=== PATIENT | female | born 1975 | race Caucasian/White ===

== ENCOUNTER → 2021-08-05 | Outpatient (CLI) | payer OTHER ==
[~2021-08-05] VITALS: Ht 167.6 cm; Wt 65.8 kg
[~2021-08-05] MED LIST: ACET325T9 PO; BACL10TA PO; CALC500T54 PO; CETI10TA74 PO; CHOL400T14 PO; CYAN500T7 PO; GABA300C18 PO; INTE44PE SQ; MONT10TA7 PO; SINCALIDE 1.3 MCG in IV NORMAL SALINE 50ML 30 ML IV ONE
--- NOTE | 2021-08-05 12:34 | RAD ---
HEPATOBILIARY SCAN WITH EJECTION FRACTION History: Reason: NAUSEA, EPIGASTRIC PAIN / Spl. Instructions: 1.3 MCG SINCALIDE GIVEN IV FOR GBEF / H istory: PAIN X 3-6 MONTHS INCREASING OVER TIME. Procedure: Serial static images are obtained of the liver and biliary system in the frontal projectio n following IV administration of 5.2 mCi of Technetium 99m Choletec. After filling of the gallbladd er, 1.3 mcg of Sincalide were infused over 30 minutes and dynamic imaging continued over this period of 30 minutes to assess gallbladder ejection fraction. Findings: The anterior radionuclide angiogram demonstrates grossly normal perfusion of the liver without perich olecystic hyperperfusion. There is prompt uniform accumulation of tracer by the liver. There is normal filling of the gallbladd er and normal emptying into the biliary system and small bowel. Radiotracer is visualized within the small bowel by 25 minutes. The gallbladder ejection fraction measures 41% (normal gallbladder EF is 3 5% or greater). IMPRESSION: 1. The cystic duct and common bile duct are patent. Negative for acute cholecystitis. 2. The gallbladder ejection fraction is 41 percent. Electronically signed by: Vitor Betancourt MD (08/05/2021 12:32 PM) [id number]
== END ==
LOC: NM 08:00
PROVIDERS: ATTEND Internal Medicine Gastroenterology
DX: R11.0 Nausea (principal); R10.13 Epigastric pain
CPT/HCPCS: 78227; A9537; J2805